=== PATIENT | male | born 1950 | race Caucasian/White ===

== ENCOUNTER 2020-12-22 17:23 | Emergency (ER) | payer MEDICARE, MEDICAID ==
[~2020-12-22] VITALS: Ht 172.7 cm; Wt 81.1 kg
--- NOTE | 2020-12-22 17:31 | NUR ---
ERMD AT BEDSIDE FOR EVALUATION.
--- NOTE | 2020-12-22 17:49 | NUR ---
PATIENT BIB EMS WITH CHIEF C/O GLF AROUND 1700. PATIENT DENIES LOC, DENIES HITTING HEAD PER EMS. SMALL ABRASION NOTED TO LEFT WRIST. PER EMS PATIENT'S BP UPON ARRIVAL WAS 78/52, 18 GAUGE IV STARTED RIGHT WRIST AND 600 NS GIVEN, PATIENTS BP UP TO 96/60. PATIENT'S INITIAL RA SAT 88%, PLACED ON 2 LPM NC AND O2 UP TO 95%. PATIENT A-FIB ON MONITOR, HAS HX OF A-FIB. PER EMS OTHER VSS EN ROUTE. UPON ASSESSMENT PATIENT DOESN'T HAVE ANY SPECIFIC COMPLAINTS, ABRASION NOTED ON LEFT OUTER WRIST AREA, NOT ACTIVELY BLEEDING, O2 96% ON RA, BP 70'S/50'S AND ERMD AWARE. CONNECTED TO ALL MONITORS, NADN, SIDE RAILS UP X2, CALL LIGHT WITHIN REACH.
[2020-12-22] MEDS ORDERED: THIAMINE 100MG TABLET ONE (17:55)
[2020-12-22] MEDS ORDERED: SODIUM CHLORIDE 0.9% 1,000ML IVBOLUS ONE (18:00)
[2020-12-22] MEDS ORDERED: THIAMINE 100MG TABLET PO ONE (18:00)
[2020-12-22] MEDS ORDERED: SODIUM CHLORIDE FLUSH 10ML SYR IVF ONE (18:00)
[2020-12-22 18:19] LABS: ALANINE AMINOTRANSFERASE 24 U/L (12-78); ALBUMIN 2.8 g/dL (3.4-5.0); ANION GAP 7 mmol/L (5-15); CALCIUM 7.7 mg/dL (8.5-10.1); CHLORIDE 105 mmol/L (98-107); CREATININE 1.67 mg/dL (0.7-1.3); T4 (THYROXINE) 9.8 mcg/dL (4.5-12.1)
[2020-12-22 18:29] LABS: ALKALINE PHOSPHATASE 55 U/L (45-117); BILIRUBIN,TOTAL 0.5 mg/dL (0.2-1.0); TOTAL PROTEIN 7.2 g/dL (6.4-8.2); TROPONIN I < 0.015 ng/mL (0.000-0.045)
--- NOTE | 2020-12-22 18:41 | NUR ---
PATIENT RESTING IN GURNEY, EYES CLOSED, RESP EVEN AND UNLABORED, CONNECTED TO MONITORS, VSS, SIDE RAILS UP X2, CALL LIGHT WITHIN REACH. WAITING FOR ALL LABS TO RESULT.
[2020-12-22 19:21] LABS: BASOPHILS % (AUTO) 1 % (0-1); EOSINOPHILS % (AUTO) 1 % (1-7); LYMPHOCYTES % (AUTO) 32 % (22-44); MEAN CORPUSCULAR HEMOGLOBIN 33.9 pg (27.5-34.5); MEAN CORPUSCULAR HGB CONC 33.4 g/dL (33.2-36.2); MEAN PLATELET VOLUME 8.6 fL (7.4-10.4); MONOCYTES % (AUTO) 9 % (2-9); NEUTROPHILS % (AUTO) 57 % (42-75); PLATELET COUNT 57 x10^3/uL (130-400); RED CELL DISTRIBUTION WIDTH 14.2 % (9.4-14.8)
[2020-12-22 19:29] LABS: INTERNATIONAL NORMALIZED RATIO 2.19 (0.93-1.1); PROTHROMBIN TIME 23.1 Seconds (9.6-11.5)
[2020-12-22 19:54] LABS: <PLATELET ESTIMATE> DECREASED; <PLT MORPHOLOGY> NORMAL PLT MORPH; ANISOCYTOSIS 1+; MD MORPH REVIEW ONLY; OVALOCYTES 1+
[2020-12-22 19:55] LABS: HEMOGRAM NOTE RECHECKED
[2020-12-22] MEDS ORDERED: DIPH,PERTUSS(ACELL),TET VAC/PF NC IM-VACC ONE (20:00)
[2020-12-22] MEDS ORDERED: DIPH,PERTUSS(ACELL),TET VAC/PF 0.5 ML IM-VACC ONE (21:22)
[2020-12-22] MEDS ORDERED: ATEN25TA PO (21:23)
[2020-12-22] MEDS ORDERED: BENA5TAB3 PO (21:23)
--- NOTE | 2020-12-22 21:23 | NUR ---
AT THE BEDSIDE WITH THE PT. PLAN OF CARE WAS DISCUSSED.
[2020-12-22 22:21] VITALS: BP 133/84
== END 2020-12-22 22:23 | disposition home or self-care (01) ==
LOC: ED 19:33
DX: S60.811A Abrasion of right wrist, initial encounter (principal); I48.20 Chronic atrial fibrillation, unspecified; R55 Syncope and collapse; F10.129 Alcohol abuse with intoxication, unspecified; I10 Essential (primary) hypertension; W01.0XXA Fall on same level from slipping, tripping and stumbling without subsequent striking against object, initial encounter; Y93.89 Activity, other specified; Y92.009 Unspecified place in unspecified non-institutional (private) residence as the place of occurrence of the external cause; Y99.8 Other external cause status
CPT/HCPCS: 36415; 71045; 80053; 80320; 83735; 84436; 84443; 84484; 85025; 85610; 85730; 90471; 90715; 93005; 96360; 99285; J7030; G0480